=== PATIENT | male | born 2000 | race Caucasian/White ===

== ENCOUNTER → 2021-05-10 | Outpatient (CLI) | payer OTHER | LOC: KOH-I 09:21 | DX: M25.571 Pain in right ankle and joints of right foot (principal); S92.811A Other fracture of right foot, initial encounter for closed fracture | CPT/HCPCS: 73610; 73630 ==

== ENCOUNTER → 2021-06-16 | Outpatient (CLI) | payer OTHER | LOC: KOH-I 14:27 | DX: S92.001A Unspecified fracture of right calcaneus, initial encounter for closed fracture (principal); S92.151A Displaced avulsion fracture (chip fracture) of right talus, initial encounter for closed fracture | CPT/HCPCS: 73610; 73630 ==

== ENCOUNTER → 2021-07-26 | Outpatient (CLI) | payer OTHER | LOC: KOH-I 16:00 | DX: S92.021A Displaced fracture of anterior process of right calcaneus, initial encounter for closed fracture (principal); S92.151A Displaced avulsion fracture (chip fracture) of right talus, initial encounter for closed fracture | CPT/HCPCS: 73610 ==

== ENCOUNTER → 2021-09-15 | Outpatient (CLI) | payer OTHER | LOC: KOH-I 15:52 | DX: S92.811A Other fracture of right foot, initial encounter for closed fracture (principal) | CPT/HCPCS: 73610 ==